=== PATIENT | female | born 1930 | race Caucasian/White ===

== ENCOUNTER 2018-12-16 15:07 | Inpatient (IN) | payer MEDICARE, MEDICAID ==
[~2018-12-16] VITALS: Ht 144.8 cm; Wt 49.4 kg
[2018-12-16] MEDS ORDERED: Z GUARD REMEDY PASTE 57 GM TUBE TOP PRN (18:00)
[2018-12-16 21:15] VITALS: BP 134/58
[2018-12-16] MEDS ORDERED: LOSA100T31 PO (21:33)
[2018-12-16] MEDS ORDERED: SIMV20TA6 PO (21:33)
[2018-12-16] MEDS ORDERED: DOCU250C14 PO (21:33)
[2018-12-16] MEDS ORDERED: FERR325T22 PO (21:33)
[2018-12-16] MEDS ORDERED: ASPI-605 PO (21:33)
[2018-12-16] MEDS ORDERED: FAMO-132 PO (21:33)
[2018-12-16] MEDS ORDERED: AMLO5TAB9 PO (21:33)
[2018-12-16] MEDS ORDERED: CARV3.122 PO (21:33)
[2018-12-16] MEDS ORDERED: ENOX40DI SQ (21:33)
[2018-12-17 06:00] VITALS: BP 146/55
[2018-12-17 08:00] VITALS: BP 143/58
[2018-12-17] MEDS: ASPIRIN EC 81 MG TABLET.DR PO SCH (08:38)
[2018-12-17] MEDS: AMLODIPINE 5 MG TABLET PO SCH (08:38)
[2018-12-17] MEDS ORDERED: ENOXAPARIN SODIUM 40 MG/0.4 ML DISP.SYRIN SQ SCH (09:00)
[2018-12-17] MEDS ORDERED: Medication Not On Formulary EA (Losartan Potassium 100 MG) PO SCH (09:00)
[2018-12-17] MEDS ORDERED: FAMOTIDINE 20 MG TABLET PO SCH (09:00)
[2018-12-17] MEDS ORDERED: Medication Not On Formulary EA (Ferrous Gluconate 324 MG) PO SCH (09:00)
[2018-12-17] MEDS: LOSARTAN POTASSIUM 50 MG TABLET PO SCH (09:55)
[2018-12-17] MEDS: CARVEDILOL 3.125 MG TABLET PO SCH ×2 (09:55→17:47)
[2018-12-17] MEDS ORDERED: ONDANSETRON HCL 4 MG TABLET PO PRN (12:00)
[2018-12-17] MEDS: FERROUS GLUCONATE 324 MG TABLET PO SCH (15:03)
[2018-12-17] MEDS: ENOXAPARIN SODIUM 30 MG/0.3 ML DISP.SYRIN SUBCUT SCH (15:05)
[2018-12-17 15:38] VITALS: BP 117/49
[2018-12-17 20:21] VITALS: BP 121/77
[2018-12-17] MEDS: SIMVASTATIN 20 MG TABLET PO SCH (21:11)
[2018-12-18 04:55] VITALS: BP 136/67
[2018-12-18 07:50] LABS: BASOPHILS # (AUTO) 0.1 K/uL (0.0-8.0); BASOPHILS % (AUTO) 0.7 % (0.0-2.0); EOSINOPHILS # (AUTO) 0.3 K/uL (0.0-0.7); EOSINOPHILS % (AUTO) 4.1 % (0.0-7.0); HEMATOCRIT 29.2 % (31.2-41.9); HEMOGLOBIN 9.9 g/dL (10.9-14.3); LYMPHOCYTES # (AUTO) 1.8 K/uL (20.0-40.0); LYMPHOCYTES % (AUTO) 22.7 % (20.5-51.5); MEAN CORPUSCULAR HEMOGLOBIN 30.4 uug (24.7-32.8); MEAN CORPUSCULAR HGB CONC 34 g/dL (32.3-35.6); MONOCYTES # (AUTO) 0.9 K/uL (2.0-10.0); MONOCYTES % (AUTO) 11.2 % (0.0-11.0); NEUTROPHILS % (AUTO) 61.3 % (38.5-71.5); PLATELET COUNT (AUTO) 402 K/uL (179-408); RED BLOOD CELL COUNT(AUTO) 3.25 MIL/uL (3.63-4.92); WHITE BLOOD COUNT (AUTO) 8.1 K/uL (3.8-11.8)
[2018-12-18 08:06] LABS: THYROID STIMULATING HORMONE 0.952 mIU/mL (0.358-3.740)
[2018-12-18 08:09] LABS: CARBON DIOXIDE 27 mmol/L (21-32); CHLORIDE 99 mmol/L (98-107); CREATININE 0.4 mg/dL (0.6-1.3); GLUCOSE 105 mg/dL (74-106); MAGNESIUM 1.9 mg/dL (1.8-2.4); PHOSPHOROUS 2.8 mg/dL (2.5-4.9); POTASSIUM 3.6 mmol/L (3.5-5.1); UREA NITROGEN, BLOOD 10 mg/dL (7-18)
[2018-12-18 08:33] VITALS: BP 134/54
[2018-12-18] MEDS: FAMOTIDINE 20 MG TABLET PO SCH (09:02)
[2018-12-18] MEDS: FERROUS GLUCONATE 324 MG TABLET PO SCH (09:02)
[2018-12-18] MEDS: HYDROCODONE/APAP 5-325MG TABLET PO PRN ×2 (09:03→18:21)
[2018-12-18] MEDS: ASPIRIN EC 81 MG TABLET.DR PO SCH (09:03)
[2018-12-18] MEDS: CARVEDILOL 3.125 MG TABLET PO SCH ×2 (09:04→18:17)
[2018-12-18] MEDS: AMLODIPINE 5 MG TABLET PO SCH (09:04)
[2018-12-18] MEDS: LOSARTAN POTASSIUM 50 MG TABLET PO SCH (09:04)
[2018-12-18] MEDS: ENOXAPARIN SODIUM 30 MG/0.3 ML DISP.SYRIN SUBCUT SCH (09:11)
[2018-12-18 16:58] VITALS: BP 150/63
[2018-12-18] MEDS: MIRALAX 17 GM POWD.PACK PO PRN (18:17)
[2018-12-18] MEDS: SIMVASTATIN 20 MG TABLET PO SCH (20:49)
[2018-12-18 21:10] VITALS: BP 153/63
[2018-12-19 05:15] VITALS: BP 127/57
[2018-12-19 08:00] VITALS: BP 132/62
[2018-12-19] MEDS: HYDROCODONE/APAP 5-325MG TABLET PO PRN ×2 (08:48→17:34)
[2018-12-19] MEDS: FAMOTIDINE 20 MG TABLET PO SCH (08:48)
[2018-12-19] MEDS: FERROUS GLUCONATE 324 MG TABLET PO SCH (08:48)
[2018-12-19] MEDS: LOSARTAN POTASSIUM 50 MG TABLET PO SCH (08:49)
[2018-12-19] MEDS: AMLODIPINE 5 MG TABLET PO SCH (08:49)
[2018-12-19] MEDS: CARVEDILOL 3.125 MG TABLET PO SCH ×2 (08:49→17:00)
[2018-12-19] MEDS: ASPIRIN EC 81 MG TABLET.DR PO SCH (08:49)
[2018-12-19] MEDS: ENOXAPARIN SODIUM 30 MG/0.3 ML DISP.SYRIN SUBCUT SCH (08:58)
[2018-12-19] MEDS ORDERED: BISACODYL 5 MG TABLET.DR PO ONE (10:30)
[2018-12-19 16:49] VITALS: BP 132/62
[2018-12-19 19:40] VITALS: BP 115/73
[2018-12-19] MEDS: SIMVASTATIN 20 MG TABLET PO SCH (20:48)
[2018-12-19] MEDS: BISACODYL 10 MG SUPP.RECT RC PRN (22:24)
[2018-12-20] MEDS: HYDROCODONE/APAP 5-325MG TABLET PO PRN ×3 (02:04→18:18)
[2018-12-20 06:26] VITALS: BP 126/57
[2018-12-20 08:31] VITALS: BP 134/64
[2018-12-20] MEDS: FAMOTIDINE 20 MG TABLET PO SCH (09:03)
[2018-12-20] MEDS: LOSARTAN POTASSIUM 50 MG TABLET PO SCH (09:04)
[2018-12-20] MEDS: ASPIRIN EC 81 MG TABLET.DR PO SCH (09:04)
[2018-12-20] MEDS: FERROUS GLUCONATE 324 MG TABLET PO SCH (09:04)
[2018-12-20] MEDS: CARVEDILOL 3.125 MG TABLET PO SCH ×2 (09:04→18:18)
[2018-12-20] MEDS: ENOXAPARIN SODIUM 30 MG/0.3 ML DISP.SYRIN SUBCUT SCH (09:05)
[2018-12-20] MEDS: AMLODIPINE 5 MG TABLET PO SCH (09:05)
[2018-12-20] MEDS: MIRALAX 17 GM POWD.PACK PO PRN (09:05)
[2018-12-20 16:34] VITALS: BP 122/55
[2018-12-20] MEDS: MAGNESIUM HYDROXIDE 30 ML LIQUID UDC PO PRN (18:18)
[2018-12-20 20:07] VITALS: BP 130/87
[2018-12-20] MEDS: SIMVASTATIN 20 MG TABLET PO SCH (21:11)
[2018-12-20] MEDS: ACETAMINOPHEN 325 MG TABLET PO PRN (22:02)
[2018-12-20 22:51] LABS: *BILIRUBIN,URIN NEGATIVE (NEGATIVE); *CLARITY,URINE CLOUDY (CLEAR); *COLOR,URINE YELLOW (YELLOW); *KETONES,URINE NEGATIVE (NEGATIVE); LEUKOCYTE ESTERASE ,URINE 3+ (NEGATIVE); NITRITE, URINE POSITIVE (NEGATIVE); PH,URINE >=9.0 (5.0-8.0); UGLUCOSE NEGATIVE (NEGATIVE)
[2018-12-20 22:55] LABS: *BLOOD, URINE TRACE (NEGATIVE)
[2018-12-20 23:11] LABS: BACTERIA,URINE MANY /HPF (NONE SEEN); SQUAMOUS EPITHELIAL CELL,UR FEW /HPF (NONE SEEN)
[2018-12-20 23:12] LABS: RBC,URINE 20-50 /HPF (0-3); TRIPLE PHOSPHATE CRYSTAL,UR FEW /HPF (NONE SEEN)
[2018-12-21 05:20] VITALS: BP 132/65
[2018-12-21 07:30] VITALS: BP 129/62
[2018-12-21] MEDS: LOSARTAN POTASSIUM 50 MG TABLET PO SCH (09:39)
[2018-12-21] MEDS: FAMOTIDINE 20 MG TABLET PO SCH (09:39)
[2018-12-21] MEDS: ASPIRIN EC 81 MG TABLET.DR PO SCH (09:39)
[2018-12-21] MEDS: AMLODIPINE 5 MG TABLET PO SCH (09:39)
[2018-12-21] MEDS: CARVEDILOL 3.125 MG TABLET PO SCH ×2 (09:40→17:10)
[2018-12-21] MEDS: FERROUS GLUCONATE 324 MG TABLET PO SCH (09:40)
[2018-12-21] MEDS: ENOXAPARIN SODIUM 30 MG/0.3 ML DISP.SYRIN SUBCUT SCH (09:41)
[2018-12-21] MEDS: HYDROCODONE/APAP 5-325MG TABLET PO PRN (09:42)
[2018-12-21] MEDS: MIRALAX 17 GM POWD.PACK PO PRN (10:43)
[2018-12-21] MEDS: CEphaleXIN 250 MG CAPSULE PO SCH ×2 (14:45→21:00)
[2018-12-21 15:10] VITALS: BP 129/62
[2018-12-21 16:00] VITALS: BP 129/58
[2018-12-21] MEDS: SIMVASTATIN 20 MG TABLET PO SCH (20:13)
[2018-12-21] MEDS: DOCUSATE SODIUM 100 MG CAPSULE PO SCH (20:13)
[2018-12-21] MEDS: ACETAMINOPHEN 325 MG TABLET PO PRN (20:13)
[2018-12-21 22:01] VITALS: BP 126/48
[2018-12-22 04:40] VITALS: BP 118/58
[2018-12-22] MEDS: CEphaleXIN 250 MG CAPSULE PO SCH ×3 (06:16→22:40)
[2018-12-22] MEDS: FAMOTIDINE 20 MG TABLET PO SCH (08:53)
[2018-12-22] MEDS: DOCUSATE SODIUM 100 MG CAPSULE PO SCH ×2 (08:53→21:45)
[2018-12-22] MEDS: AMLODIPINE 5 MG TABLET PO SCH (08:54)
[2018-12-22] MEDS: HYDROCODONE/APAP 5-325MG TABLET PO PRN (08:54)
[2018-12-22] MEDS: LOSARTAN POTASSIUM 50 MG TABLET PO SCH (08:54)
[2018-12-22 08:55] VITALS: BP 124/59
[2018-12-22] MEDS: ASPIRIN EC 81 MG TABLET.DR PO SCH (08:55)
[2018-12-22] MEDS: FERROUS GLUCONATE 324 MG TABLET PO SCH (08:55)
[2018-12-22] MEDS: CARVEDILOL 3.125 MG TABLET PO SCH ×2 (08:56→17:00)
[2018-12-22] MEDS: ENOXAPARIN SODIUM 30 MG/0.3 ML DISP.SYRIN SUBCUT SCH (08:56)
[2018-12-22] MEDS ORDERED: LACTULOSE 20 G/30 ML LIQUID UDC PO PRN (10:15)
[2018-12-22 16:01] VITALS: BP 106/50
[2018-12-22 20:58] VITALS: BP 106/64
[2018-12-22] MEDS: SIMVASTATIN 20 MG TABLET PO SCH (21:45)
[2018-12-22] MEDS: BISACODYL 10 MG SUPP.RECT RC PRN (21:48)
[2018-12-23 05:08] VITALS: BP 128/63
[2018-12-23] MEDS: CEphaleXIN 250 MG CAPSULE PO SCH ×3 (06:13→21:44)
[2018-12-23] MEDS: ENOXAPARIN SODIUM 30 MG/0.3 ML DISP.SYRIN SUBCUT SCH (08:02)
[2018-12-23] MEDS: FAMOTIDINE 20 MG TABLET PO SCH (08:11)
[2018-12-23] MEDS: AMLODIPINE 5 MG TABLET PO SCH (08:11)
[2018-12-23] MEDS: DOCUSATE SODIUM 100 MG CAPSULE PO SCH ×2 (08:11→20:31)
[2018-12-23] MEDS: LOSARTAN POTASSIUM 50 MG TABLET PO SCH (08:11)
[2018-12-23] MEDS: ASPIRIN EC 81 MG TABLET.DR PO SCH (08:11)
[2018-12-23] MEDS: FERROUS GLUCONATE 324 MG TABLET PO SCH (08:11)
[2018-12-23] MEDS: CARVEDILOL 3.125 MG TABLET PO SCH ×2 (08:12→17:21)
[2018-12-23] MEDS: HYDROCODONE/APAP 5-325MG TABLET PO PRN (08:13)
[2018-12-23 08:25] VITALS: BP 131/59
[2018-12-23] MEDS: ACETAMINOPHEN 325 MG TABLET PO PRN (12:47)
[2018-12-23 17:35] VITALS: BP 115/47
[2018-12-23 17:42] VITALS: BP 129/62
[2018-12-23] MEDS: SIMVASTATIN 20 MG TABLET PO SCH (20:31)
[2018-12-23 22:03] VITALS: BP 109/55
[2018-12-24 04:01] VITALS: BP 122/66
[2018-12-24] MEDS: CEphaleXIN 250 MG CAPSULE PO SCH ×3 (06:11→21:01)
[2018-12-24 07:30] VITALS: BP 122/59
[2018-12-24] MEDS: ASPIRIN EC 81 MG TABLET.DR PO SCH (08:08)
[2018-12-24] MEDS: LOSARTAN POTASSIUM 50 MG TABLET PO SCH (08:09)
[2018-12-24] MEDS: FERROUS GLUCONATE 324 MG TABLET PO SCH (08:09)
[2018-12-24] MEDS: AMLODIPINE 5 MG TABLET PO SCH (08:09)
[2018-12-24] MEDS: FAMOTIDINE 20 MG TABLET PO SCH (08:10)
[2018-12-24] MEDS: DOCUSATE SODIUM 100 MG CAPSULE PO SCH ×2 (08:10→20:34)
[2018-12-24] MEDS: CARVEDILOL 3.125 MG TABLET PO SCH ×2 (08:10→16:32)
[2018-12-24] MEDS: ENOXAPARIN SODIUM 30 MG/0.3 ML DISP.SYRIN SUBCUT SCH (08:51)
[2018-12-24 16:41] VITALS: BP 117/57
[2018-12-24 20:25] VITALS: BP 125/53
[2018-12-24] MEDS: MAGNESIUM HYDROXIDE 30 ML LIQUID UDC PO PRN (20:34)
[2018-12-24] MEDS: SIMVASTATIN 20 MG TABLET PO SCH (20:34)
[2018-12-24] MEDS: ACETAMINOPHEN 325 MG TABLET PO PRN (20:36)
[2018-12-25 06:06] VITALS: BP 128/61
[2018-12-25] MEDS: CEphaleXIN 250 MG CAPSULE PO SCH ×3 (06:09→21:36)
[2018-12-25] MEDS: DOCUSATE SODIUM 100 MG CAPSULE PO SCH ×2 (08:29→21:36)
[2018-12-25] MEDS: LOSARTAN POTASSIUM 50 MG TABLET PO SCH (08:31)
[2018-12-25] MEDS: ASPIRIN EC 81 MG TABLET.DR PO SCH (08:32)
[2018-12-25] MEDS: AMLODIPINE 5 MG TABLET PO SCH (08:32)
[2018-12-25] MEDS: FAMOTIDINE 20 MG TABLET PO SCH (08:32)
[2018-12-25] MEDS: FERROUS GLUCONATE 324 MG TABLET PO SCH (08:34)
[2018-12-25] MEDS: ENOXAPARIN SODIUM 30 MG/0.3 ML DISP.SYRIN SUBCUT SCH (08:41)
[2018-12-25] MEDS: CARVEDILOL 3.125 MG TABLET PO SCH ×2 (08:42→17:46)
[2018-12-25] MEDS: HYDROCODONE/APAP 5-325MG TABLET PO PRN (11:08)
[2018-12-25 17:30] VITALS: BP 124/59
[2018-12-25] MEDS: ACETAMINOPHEN 325 MG TABLET PO PRN (17:47)
[2018-12-25 19:45] VITALS: BP 124/55
[2018-12-25] MEDS: SIMVASTATIN 20 MG TABLET PO SCH (21:36)
[2018-12-26 05:00] VITALS: BP 138/64
[2018-12-26] MEDS: CEphaleXIN 250 MG CAPSULE PO SCH ×2 (05:59→15:42)
[2018-12-26] MEDS: FAMOTIDINE 20 MG TABLET PO SCH (08:47)
[2018-12-26] MEDS: HYDROCODONE/APAP 5-325MG TABLET PO PRN (08:47)
[2018-12-26] MEDS: DOCUSATE SODIUM 100 MG CAPSULE PO SCH ×2 (08:47→20:15)
[2018-12-26] MEDS: ASPIRIN EC 81 MG TABLET.DR PO SCH (08:47)
[2018-12-26] MEDS: CARVEDILOL 3.125 MG TABLET PO SCH ×2 (08:49→16:57)
[2018-12-26] MEDS: LOSARTAN POTASSIUM 50 MG TABLET PO SCH (08:49)
[2018-12-26] MEDS: FERROUS GLUCONATE 324 MG TABLET PO SCH (08:50)
[2018-12-26] MEDS: ENOXAPARIN SODIUM 30 MG/0.3 ML DISP.SYRIN SUBCUT SCH (08:53)
[2018-12-26] MEDS: AMLODIPINE 5 MG TABLET PO SCH (09:00)
[2018-12-26 09:43] VITALS: BP 137/68
[2018-12-26 15:49] VITALS: BP 130/59
[2018-12-26] MEDS: ACETAMINOPHEN 325 MG TABLET PO PRN (17:04)
[2018-12-26 19:30] VITALS: BP 127/55
[2018-12-26] MEDS: SIMVASTATIN 20 MG TABLET PO SCH (20:15)
[2018-12-27 06:06] VITALS: BP 149/62
[2018-12-27] MEDS: ASPIRIN EC 81 MG TABLET.DR PO SCH (08:08)
[2018-12-27] MEDS: DOCUSATE SODIUM 100 MG CAPSULE PO SCH ×2 (08:08→20:28)
[2018-12-27] MEDS: FERROUS GLUCONATE 324 MG TABLET PO SCH (08:08)
[2018-12-27] MEDS: FAMOTIDINE 20 MG TABLET PO SCH (08:08)
[2018-12-27] MEDS: HYDROCODONE/APAP 5-325MG TABLET PO PRN (08:08)
[2018-12-27] MEDS: AMLODIPINE 5 MG TABLET PO SCH (08:09)
[2018-12-27] MEDS: LOSARTAN POTASSIUM 50 MG TABLET PO SCH (08:09)
[2018-12-27] MEDS: CARVEDILOL 3.125 MG TABLET PO SCH ×2 (08:09→18:08)
[2018-12-27] MEDS: ENOXAPARIN SODIUM 30 MG/0.3 ML DISP.SYRIN SUBCUT SCH (08:14)
[2018-12-27 09:24] VITALS: BP 131/63
[2018-12-27 16:28] VITALS: BP 118/69
[2018-12-27] MEDS: ACETAMINOPHEN 325 MG TABLET PO PRN (18:07)
[2018-12-27] MEDS: SIMVASTATIN 20 MG TABLET PO SCH (20:28)
[2018-12-27 20:56] VITALS: BP 119/57
[2018-12-28 04:20] VITALS: BP 122/61
[2018-12-28 08:00] VITALS: BP 131/64
[2018-12-28] MEDS: AMLODIPINE 5 MG TABLET PO SCH (08:18)
[2018-12-28] MEDS: ASPIRIN EC 81 MG TABLET.DR PO SCH (08:18)
[2018-12-28] MEDS: FAMOTIDINE 20 MG TABLET PO SCH (08:18)
[2018-12-28] MEDS: DOCUSATE SODIUM 100 MG CAPSULE PO SCH ×2 (08:18→20:20)
[2018-12-28] MEDS: FERROUS GLUCONATE 324 MG TABLET PO SCH (08:19)
[2018-12-28] MEDS: CARVEDILOL 3.125 MG TABLET PO SCH ×2 (08:19→16:57)
[2018-12-28] MEDS: LOSARTAN POTASSIUM 50 MG TABLET PO SCH (08:19)
[2018-12-28] MEDS: ACETAMINOPHEN 325 MG TABLET PO PRN ×3 (08:19→20:20)
[2018-12-28] MEDS: ENOXAPARIN SODIUM 30 MG/0.3 ML DISP.SYRIN SUBCUT SCH (08:43)
[2018-12-28 15:11] VITALS: BP 123/59
[2018-12-28 20:16] VITALS: BP 131/52
[2018-12-28] MEDS: SIMVASTATIN 20 MG TABLET PO SCH (20:20)
[2018-12-29 04:50] VITALS: BP 133/62
[2018-12-29] MEDS: ACETAMINOPHEN 325 MG TABLET PO PRN (08:59)
[2018-12-29] MEDS: DOCUSATE SODIUM 100 MG CAPSULE PO SCH ×2 (09:00→20:48)
[2018-12-29] MEDS: CARVEDILOL 3.125 MG TABLET PO SCH ×2 (09:00→17:46)
[2018-12-29] MEDS: FERROUS GLUCONATE 324 MG TABLET PO SCH (09:00)
[2018-12-29] MEDS: ASPIRIN EC 81 MG TABLET.DR PO SCH (09:00)
[2018-12-29] MEDS: FAMOTIDINE 20 MG TABLET PO SCH (09:00)
[2018-12-29] MEDS: AMLODIPINE 5 MG TABLET PO SCH (09:01)
[2018-12-29] MEDS: LOSARTAN POTASSIUM 50 MG TABLET PO SCH (09:01)
[2018-12-29] MEDS: ENOXAPARIN SODIUM 30 MG/0.3 ML DISP.SYRIN SUBCUT SCH (09:21)
[2018-12-29 09:32] VITALS: BP 136/55
[2018-12-29 16:28] VITALS: BP_SYST 116; BP_SYST 129; BP_DIAS 52; BP_DIAS 57
[2018-12-29] MEDS: SIMVASTATIN 20 MG TABLET PO SCH (20:48)
[2018-12-29 21:03] VITALS: BP 128/60
[2018-12-30 05:05] VITALS: BP 123/65
[2018-12-30 07:49] LABS: BASOPHILS # (AUTO) 0.1 K/uL (0.0-8.0); BASOPHILS % (AUTO) 0.7 % (0.0-2.0); EOSINOPHILS # (AUTO) 0.2 K/uL (0.0-0.7); EOSINOPHILS % (AUTO) 1.9 % (0.0-7.0); HEMATOCRIT 29.7 % (31.2-41.9); LYMPHOCYTES # (AUTO) 1.6 K/uL (20.0-40.0); LYMPHOCYTES % (AUTO) 17.7 % (20.5-51.5); MEAN CORPUSCULAR HEMOGLOBIN 30.9 uug (24.7-32.8); MEAN CORPUSCULAR HGB CONC 34 g/dL (32.3-35.6); MEAN CORPUSCULAR VOLUME 91.6 fL (75.5-95.3); MONOCYTES # (AUTO) 0.7 K/uL (2.0-10.0); MONOCYTES % (AUTO) 8.4 % (0.0-11.0); NEUTROPHILS # (AUTO) 6.3 K/uL (1.8-8.9); NEUTROPHILS % (AUTO) 71.3 % (38.5-71.5); PLATELET COUNT (AUTO) 803 K/uL (179-408); RED BLOOD CELL COUNT(AUTO) 3.24 MIL/uL (3.63-4.92); WHITE BLOOD COUNT (AUTO) 8.8 K/uL (3.8-11.8)
[2018-12-30 07:56] LABS: ALANINE AMINOTRANSFERASE 13 U/L (14-59); ALKALINE PHOSPHATASE 220 U/L (50-136); ASPARTATE AMINOTRANSFERASE 17 U/L (15-37); BILIRUBIN,TOTAL 0.6 mg/dL (0.2-1.0); CARBON DIOXIDE 25 mmol/L (21-32); CHLORIDE 101 mmol/L (98-107); CREATININE 0.6 mg/dL (0.6-1.3); GLUCOSE 97 mg/dL (74-106); MAGNESIUM 1.9 mg/dL (1.8-2.4); PHOSPHOROUS 3.8 mg/dL (2.5-4.9); UREA NITROGEN, BLOOD 8 mg/dL (7-18)
[2018-12-30 08:44] VITALS: BP 127/55
[2018-12-30] MEDS: CARVEDILOL 3.125 MG TABLET PO SCH ×2 (09:26→17:15)
[2018-12-30] MEDS: DOCUSATE SODIUM 100 MG CAPSULE PO SCH ×2 (09:27→20:28)
[2018-12-30] MEDS: LOSARTAN POTASSIUM 50 MG TABLET PO SCH (09:27)
[2018-12-30] MEDS: ASPIRIN EC 81 MG TABLET.DR PO SCH (09:27)
[2018-12-30] MEDS: FERROUS GLUCONATE 324 MG TABLET PO SCH (09:27)
[2018-12-30] MEDS: FAMOTIDINE 20 MG TABLET PO SCH (09:28)
[2018-12-30] MEDS: AMLODIPINE 5 MG TABLET PO SCH (09:28)
[2018-12-30] MEDS: ENOXAPARIN SODIUM 30 MG/0.3 ML DISP.SYRIN SUBCUT SCH (09:33)
[2018-12-30 17:10] VITALS: BP 122/55
[2018-12-30] MEDS: ACETAMINOPHEN 325 MG TABLET PO PRN (20:28)
[2018-12-30] MEDS: SIMVASTATIN 20 MG TABLET PO SCH (20:28)
[2018-12-30 21:44] VITALS: BP 127/53
[2018-12-31 05:20] VITALS: BP 133/54
[2018-12-31] MEDS: ACETAMINOPHEN 325 MG TABLET PO PRN ×2 (07:57→18:50)
[2018-12-31] MEDS: DOCUSATE SODIUM 100 MG CAPSULE PO SCH ×2 (08:02→20:21)
[2018-12-31] MEDS: LOSARTAN POTASSIUM 50 MG TABLET PO SCH (08:02)
[2018-12-31] MEDS: AMLODIPINE 5 MG TABLET PO SCH (08:02)
[2018-12-31] MEDS: ASPIRIN EC 81 MG TABLET.DR PO SCH (08:02)
[2018-12-31] MEDS: FERROUS GLUCONATE 324 MG TABLET PO SCH (08:03)
[2018-12-31] MEDS: FAMOTIDINE 20 MG TABLET PO SCH (08:03)
[2018-12-31] MEDS: CARVEDILOL 3.125 MG TABLET PO SCH ×2 (08:04→16:57)
[2018-12-31] MEDS: ENOXAPARIN SODIUM 30 MG/0.3 ML DISP.SYRIN SUBCUT SCH (08:05)
[2018-12-31 08:42] VITALS: BP 139/58
[2018-12-31 16:12] VITALS: BP 114/51
[2018-12-31 20:16] VITALS: BP 125/57
[2018-12-31] MEDS: SIMVASTATIN 20 MG TABLET PO SCH (20:21)
[2019-01-01] MEDS: ACETAMINOPHEN 325 MG TABLET PO PRN (05:03)
[2019-01-01 05:05] VITALS: BP 138/68
[2019-01-01 08:00] VITALS: BP 146/55
[2019-01-01] MEDS: ASPIRIN EC 81 MG TABLET.DR PO SCH (10:13)
[2019-01-01] MEDS: CARVEDILOL 3.125 MG TABLET PO SCH (10:13)
[2019-01-01] MEDS: FAMOTIDINE 20 MG TABLET PO SCH (10:14)
[2019-01-01] MEDS: FERROUS GLUCONATE 324 MG TABLET PO SCH (10:14)
[2019-01-01] MEDS: LOSARTAN POTASSIUM 50 MG TABLET PO SCH (10:14)
[2019-01-01] MEDS: DOCUSATE SODIUM 100 MG CAPSULE PO SCH (10:14)
[2019-01-01 10:15] VITALS: BP 146/55
[2019-01-01] MEDS: AMLODIPINE 5 MG TABLET PO SCH (10:15)
[2019-01-01] MEDS: ENOXAPARIN SODIUM 30 MG/0.3 ML DISP.SYRIN SUBCUT SCH (10:20)
== END 2019-01-01 12:40 | disposition home health service (06) | DRG 560 ==
PROVIDERS: ADMIT Physical Medicine & Rehabilitation Pain Medicine; ATTEND Physical Medicine & Rehabilitation Pain Medicine
DX: S72.142D Displaced intertrochanteric fracture of left femur, subsequent encounter for closed fracture with routine healing (principal); D68.59 Other primary thrombophilia; E87.1 Hypo-osmolality and hyponatremia; N39.0 Urinary tract infection, site not specified; W18.30XD Fall on same level, unspecified, subsequent encounter; D63.8 Anemia in other chronic diseases classified elsewhere; E78.5 Hyperlipidemia, unspecified; I10 Essential (primary) hypertension; I25.10 Atherosclerotic heart disease of native coronary artery without angina pectoris; M19.90 Unspecified osteoarthritis, unspecified site; R26.9 Unspecified abnormalities of gait and mobility; K59.00 Constipation, unspecified; B96.4 Proteus (mirabilis) (morganii) as the cause of diseases classified elsewhere; M81.0 Age-related osteoporosis without current pathological fracture
CPT/HCPCS: 36415; 73502; 83735; 84100; 84443; 85025; 87077; 87086; J1650